=== PATIENT | female | born 1995 | race Hispanic/Latino ===

== ENCOUNTER 2019-05-26 19:28 | Emergency (ER) | payer MEDICAID ==
[2019-05-26] MEDS ORDERED: TETANUS/DIPHTHERIA TOXOID [ADULT] 0.5 ML VIAL IM ONE (20:39)
== END 2019-05-26 20:50 | disposition home or self-care (01) ==
LOC: EDH 19:28
DX: S90.121A Contusion of right lesser toe(s) without damage to nail, initial encounter (principal); F41.9 Anxiety disorder, unspecified; W22.8XXA Striking against or struck by other objects, initial encounter; Y93.89 Activity, other specified; Y92.89 Other specified places as the place of occurrence of the external cause; Y99.8 Other external cause status
CPT/HCPCS: 73630; 90471; 90714

== ENCOUNTER 2022-05-30 14:06 | Emergency (ER) | payer MEDICAID ==
[~2022-05-30] VITALS: Ht 154.9 cm; Wt 118.8 kg
[2022-05-30] MEDS ORDERED: KETOROLAC 60 MG VIAL (30MG/ML) IM ONE (16:30)
[2022-05-30 16:42] LABS: BASOPHILS % (AUTO) 0.3 % (0.0-5.0); EOSINOPHILS % (AUTO) 1.1 % (0.0-8.0); HEMATOCRIT 43.3 % (36-48); LYMPHOCYTES % (AUTO) 25.3 % (21.0-51.0); MEAN CORPUSCULAR HEMOGLOBIN 26.9 pg (27.0-33.0); MEAN CORPUSCULAR HGB CONC 31.4 g/dL (32.0-36.0); MEAN CORPUSCULAR VOLUME 85.6 fL (79-99); MONOCYTES % (AUTO) 8.2 % (3.0-13.0); NEUTROPHILS % (AUTO) 64.9 % (40.0-77.0); PLATELET COUNT (AUTO) 443 K/uL (130-400); RED BLOOD CELL COUNT(AUTO) 5.06 MIL/uL (4.00-5.50); RED CELL DISTRIBUTION WIDTH 15.2 % (11.0-15.5); WHITE BLOOD COUNT (AUTO) 9.8 K/uL (4.8-10.8)
[2022-05-30 16:50] LABS: CREATININE 0.8 mg/dL (0.5-1.5); POTASSIUM 4.5 mmol/L (3.5-5.1)
[2022-05-30 16:55] LABS: ALBUMIN 3.6 g/dL (3.5-5.0); TOTAL PROTEIN, SERUM 8.1 g/dL (6.0-8.3)
[2022-05-30] MEDS ORDERED: IBUP-2070 PO (17:42)
[2022-05-30] MEDS ORDERED: DOXY100C5 PO (17:42)
[2022-05-30] MEDS ORDERED: METH4TAB3 PO (17:42)
[2022-05-30 17:51] VITALS: BP 128/62
== END 2022-05-30 17:57 | disposition home or self-care (01) ==
LOC: EDH 14:06
DX: L04.0 Acute lymphadenitis of face, head and neck (principal); Z79.52 Long term (current) use of systemic steroids; Z79.1 Long term (current) use of non-steroidal anti-inflammatories (NSAID)
CPT/HCPCS: 99283; 80053; 85025; 36415; 96372; J1885